=== PATIENT | male | born 1940 | race African-American/Black ===

== ENCOUNTER 2018-08-10 17:40 | Emergency (ER) | payer MEDICARE, BC ==
[~2018-08-10] VITALS: Ht 188 cm; Wt 89.0 kg
[~2018-08-10 17:40] MED LIST: CLON0.5T12 PO; HYDR12.54 PO; LISI-186 PO; ZOLP5TAB8 PO
[2018-08-10] MEDS ORDERED: IPRATROPIUM BROMIDE (0.02%) 0.5MG/2.5ML NEB HHN STA (18:12)
[2018-08-10] MEDS ORDERED: ALBUTEROL (0.083%) 2.5MG/3ML NEB HHN STA (18:12)
[2018-08-10 18:18] VITALS: BP 128/71
[2018-08-10] MEDS ORDERED: ALBUTEROL (0.5%) 2.5MG/0.5ML NEB HHN ONE (18:19)
[2018-08-10] MEDS ORDERED: IPRATROPIUM BROMIDE (0.02%) 0.5MG/2.5ML NEB ONE (18:20)
== END 2018-08-10 19:00 | disposition left against medical advice (07) ==
LOC: ER 17:40
DX: R06.02 Shortness of breath (principal); F41.9 Anxiety disorder, unspecified; J44.9 Chronic obstructive pulmonary disease, unspecified; I10 Essential (primary) hypertension; H40.9 Unspecified glaucoma; Z88.0 Allergy status to penicillin
CPT/HCPCS: 94640; 99283; J7611

== ENCOUNTER 2018-11-28 13:43 | Emergency (ER) | payer MEDICARE, BC ==
[~2018-11-28] VITALS: Ht 188 cm; Wt 90.0 kg
[2018-11-28 13:48] VITALS: BP 126/64
== END 2018-11-28 15:20 | disposition left against medical advice (07) ==
LOC: ER 13:43
DX: R07.89 Other chest pain (principal); R06.00 Dyspnea, unspecified; I10 Essential (primary) hypertension; H40.9 Unspecified glaucoma; F41.9 Anxiety disorder, unspecified; J44.9 Chronic obstructive pulmonary disease, unspecified; Z87.891 Personal history of nicotine dependence; Z88.0 Allergy status to penicillin
CPT/HCPCS: 93005; 99283